=== PATIENT | male | born 1985 | race Caucasian/White ===

== ENCOUNTER 2024-10-04 09:35 | Outpatient (AMB) | payer OTHER, SELFPAY ==
--- NOTE | 2024-10-04 09:45 | A.OFFVIS_ITS ---
Vital Signs 10/04/24 09:56 Height 6 ft 3 in Weight 195 lb BMI 24.4 Pulse 53 Pulse Source Pulse Oximeter Pulse Oximetry (%) 97 Oxygen Delivery Method Room Air Intake Visit Reasons: MAT Allergies No Known Allergies Allergy (Verified 10/04/24 09:56) HPI HPI MAT: Details: He is new patient to us. He has AUD affecting his life and ability to work. 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 He last used alcohol two weeks ago otherwise he would have had 66 days sober. He did drink 4-5 sleeves a day of wild bourbon and did drink Truly spiked seltzer. He previously drank beer and gained weight. He does use marijuana daily and for sleep. Tox screen shows opiates but he denies use for 10 years. 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 He has not had alcohol withdrawal seizures or pancreatitis. He had detox July at [facility] and was there 21 days. He had Campral which he didnt find very helpful but liked naltrexone and takes 50 mg po daily and found helpful. He went to therapist yesterday and saw Domenico Ambrosio at [facility]. He took alcohol since age 16 and stopped age 28 and then restarted as above. He smokes 1 pk a day cigarettes since age 16 approximately and no vaping. He smokes marijuana daily. Soc no domestic violence no children support father and dog transport car reside with father no IVDA no OD Recovery age 28 more drinking since gf suddenly no warning and no health issues reported on couch in June no jail house no methadone no suboxone AA currently no other addictive behavior no psych hosp and no psychiatrist no SI or HI no med conditions no incarceration no parole or probation or DUIs [facility] Medical History (Updated 10/04/24 @ 10:42 by Rosa Rodrigez MD) Marijuana use Tobacco use disorder Alcohol use disorder, severe, dependence Review of Systems Const All systems reviewed & are unremarkable except as noted in HPI and below Physical Exam Vital Signs: Last Vital Signs Pulse 53 10/04/24 09:56 Pulse Ox 97 10/04/24 09:56 Oxygen Delivery Method Room Air 10/04/24 09:56 BMI result Body Mass Index 24.4 Const General: cooperative Orientation/consciousness: patient oriented x3 HEENT Head: Yes normal to inspection Mouth: Normal oral and palatal mucosa present Eyes General: appearance normal, both eyes and all related structures Pupils: Equal, round and reactive pupils present Resp Effort & Inspection: normal respiratory effort Cardio Rate: regular rate Rhythm: regular rhythm GI Palpation (GI): Soft to palpation and nontender General: Yes no CVA tenderness Back/Spine/Pelvis Back: no CVA tenderness Skin General skin exam: no rashes or lesions noted Neuro General: patient oriented x3 Cranial nerves: Yes CN's II-XII intact bilaterally and Yes Equal, round and savannah ctive pupils present Extrem General: Yes normal to inspection Psych Appearance: grossly normal Results AMB 14 Panel Urine Drug Screen Urine Marijuana (THC) Positive Last Edit by Marquita Sandy CMA on 10/04/24 09:46 Urine Cocaine Negative Last Edit by Marquita Sandy CMA on 10/04/24 09:46 Urine Morphine Negative Last Edit by Marquita Sandy CMA on 5 09:46 Urine Methamphetamine Negative Last Edit by Marquita Sandy CMA on 10/04/24 09:46 Urine Amphetamine Negative Last Edit by Marquita Sandy CMA on 10/04/24 09:46 Urine Benzodiazepine Negative Last Edit by Marquita Sandy CMA on 10/04/24 09:46 Urine Barbiturates Negative Last Edit by Marquita Sandy CMA on 10/04/24 09:46 Urine Methadone Negative Last Edit by Marquita Sandy CMA on 09:46 Urine Buprenorphine Negative Last Edit by Marquita Sandy CMA on 10/04/24 09:46 Urine Tricyclic Antidepressant Negative Last Edit by Marquita Sandy CMA on 10/04/24 09:46 Urine MDMA Negative Last Edit by Marquita Sandy CMA on 10/04/24 09 :46 Urine Oxycodone Positive Last Edit by Marquita Sandy CMA on 09:46 Urine Phencyclidine Negative Last Edit by Marquita Sandy CMA on 10/04/24 09:46 Urine Propoxyphene Negative Last Edit by Marquita Sandy CMA on 10/04/24 09:46 Results Reviewed Results Reviewed: Laboratory Last Values POC Urine Buprenorphine Negative 10/04/24 09:45 POC Urine Morphine Negative 10/04/24 09:45 POC Urine Oxycodone Positive 10/04/24 09:45 POC Urine Methadone Negative 10/04/24 09:45 POC Urine Propoxyphene Negative 10/04/24 09:45 POC Urine Barbiturates Negative 10/04/24 09:45 POC U Tricyclic Antidpr Negative 10/04/24 09:45 POC Urine PCP Negative 10/04/24 09:45 POC Ur Amphetamines Negative 10/04/24 09:45 POC Ur Methamphetamine Negative 10/04/24 09:45 POC Urine MDMA Negative 10/04/24 09:45 POC Ur Benzodiazepine Negative 10/04/24 09:45 POC Urine Cocaine Negative 10/04/24 09:45 POC Ur Marijuana (THC) Positive 10/04/24 09:45 Assessment & Plan Assessment & Plan (1) Alcohol use disorder, severe, dependence: Comment: naltrexone 50mg daily see in one month continue MVI,thiamine,folic acid continue counseling check opioids urine Code(s): F10.20 - Alcohol dependence, uncomplicated Category: Medical Plan: naltrexone 50 mg daily,one month and one refill check liver,CBC,PT and liver fibrosis HI (2) Tobacco use disorder: Comment: precontemplative no nicotine replacement desired now Code(s): F17.200 - Nicotine dependence, unspecified, uncomplicated Category: Medical Plan: na (3) Marijuana use: Code(s): F12.90 - Cannabis use, unspecified, uncomplicated Category: Social Hx Plan: na Orders: Orders AMB 14 Panel Urine Drug Screen Today Z51.81 - Encounter for therapeutic drug level monitoring Creatinine Today F10.20 - Alcohol dependence, uncomplicated Liver Fibrosis Pnl Today F10.20 - Alcohol dependence, uncomplicated Hepatitis B Surface Ab Qnt Today F10.20 - Alcohol dependence, uncomplicated Hepatitis B Surface Antigen Today F10.20 - Alcohol dependence, uncomplicated T Spot TB Today F10.20 - Alcohol dependence, uncomplicated Complete Blood Count Auto Diff Today F10.20 - Alcohol dependence, uncomplicated Hepatitis A IgG Today F10.20 - Alcohol dependence, uncomplicated Hepatitis C Antibody Today F10.20 - Alcohol dependence, uncomplicated Hepatitis C Viral Load Today F10.20 - Alcohol dependence, uncomplicated HIV Ab/Ag Today F10.20 - Alcohol dependence, uncomplicated Syphilis Screen Today F10.20 - Alcohol dependence, uncomplicated Opiates GCMS Expanded, Ur Today F10.20 - Alcohol dependence, uncomplicated Medications: New naltrexone 50 mg PO DAILY 30 days 30 tabs 1RF Coding Level of Care Code New Pt Level 4 (31023) Diagnoses Alcohol use disorder, severe, dependence F10.20 Tobacco use disorder F17.200 Marijuana use F12.90
[2024-10-04 09:56] VITALS: PULSE 53; O2SAT 97; BMI 24.4
== END 2024-10-04 10:21 | disposition home or self-care (01) ==
LOC: HO.HCC 09:36
PROVIDERS: Visit Provider Internal Medicine
DX: F10.20 Alcohol dependence, uncomplicated (principal); F17.200 Nicotine dependence, unspecified, uncomplicated; F12.90 Cannabis use, unspecified, uncomplicated; Z51.81 Encounter for therapeutic drug level monitoring
CPT/HCPCS: 99204

== ENCOUNTER 2024-10-04 09:35 | Outpatient (REF) | payer OTHER, SELFPAY ==
[2024-10-09 14:28] LABS: Codeine, Ur NEGATIVE
[2024-10-09 14:29] LABS: Hydrocodone, Ur NEGATIVE; Hydromorphone, Ur NEGATIVE; Morphine, Ur NEGATIVE; Norhydrocodone, Ur NEGATIVE; Noroxycodone, Ur NEGATIVE; Oxycodone, Ur NEGATIVE; Oxymorphone, Ur NEGATIVE
== END 2024-10-04 09:36 | disposition home or self-care (01) ==
LOC: HO.LAB 09:35
PROVIDERS: Visit Provider Internal Medicine
DX: F10.20 Alcohol dependence, uncomplicated (principal); Z51.81 Encounter for therapeutic drug level monitoring; F17.210 Nicotine dependence, cigarettes, uncomplicated; F12.90 Cannabis use, unspecified, uncomplicated; Z79.899 Other long term (current) drug therapy
CPT/HCPCS: 80307; 80365; 99202; G0480

== ENCOUNTER 2024-11-01 09:37 | Outpatient (AMB) | payer OTHER, SELFPAY ==
--- NOTE | 2024-11-01 09:40 | MHC.OFFVIS ---
Vital Signs 11/01/24 09:43 Height 6 ft 3 in Weight 199 lb BMI 24.9 Pulse 65 Pulse Source Pulse Oximeter Pulse Oximetry (%) 98 Oxygen Delivery Method Room Air Intake Visit Reasons: mat visit Allergies No Known Allergies Allergy (Verified 11/01/24 09:44) HPI Comments Details: He has said Naltrexone is helping and not drinking alcohol. He has not done blood work yet. [facility] Medical History Marijuana use Tobacco use disorder Alcohol use disorder, severe, dependence Review of Systems Const All systems reviewed & are unremarkable except as noted in HPI and below Physical Exam Vital Signs: Last Vital Signs Pulse 65 11/01/24 09:43 Pulse Ox 98 11/01/24 09:43 Oxygen Delivery Method Room Air 11/01/24 09:43 BMI result Body Mass Index 24.9 Const General: cooperative Assessment & Plan Assessment & Plan (1) Alcohol use disorder, severe, dependence: Comment: naltrexone 50mg daily see in one month continue MVI,thiamine,folic acid continue counseling Code(s): F10.20 - Alcohol dependence, uncomplicated Category: Medical Plan: See as scheduled. Medications: Refilled naltrexone 50 mg PO DAILY 30 days 30 tabs 1RF Coding Level of Care Code Est Pt Level 3 (46290) Diagnoses Alcohol use disorder, severe, dependence F10.20
[2024-11-01 09:43] VITALS: PULSE 65; O2SAT 98; BMI 24.9
== END 2024-11-01 10:22 | disposition home or self-care (01) ==
LOC: HO.HID 09:37
PROVIDERS: Visit Provider Internal Medicine
DX: F10.20 Alcohol dependence, uncomplicated (principal)
CPT/HCPCS: 99213

== ENCOUNTER → 2024-11-01 09:37 | Outpatient (BNVA) | payer OTHER, SELFPAY | PROVIDERS: Visit Provider Internal Medicine | DX: F10.20 Alcohol dependence, uncomplicated (principal) | CPT/HCPCS: 99212 ==

== ENCOUNTER 2024-12-27 11:35 | Outpatient (AMB) | payer OTHER, SELFPAY ==
--- NOTE | 2024-12-27 16:34 | MHC.AM.SUB ---
Intake Visit Reasons: MAT/ Per Dr rodrigez Allergies No Known Allergies Allergy (Verified 11/01/24 09:44) HPI HPI MAT/ Per Dr rodrigez: Details: He is doing well. He is not drinking alcohol. Naltrexone is working well. Review of Systems Const All systems reviewed & are unremarkable except as noted in HPI and below Telehealth Telehealth Telehealth Platform: Telephone Location of provider rendering services: practice address Location of patient: address on file Patient Identification confirmed using: Name, : Yes Telehealth method: voice only Patient verbally consented to treatment: Yes Patient verbally consented to billing insurance company: Yes Patient informed of any privacy concerns related to visit: Yes Minutes spent on Phone/Video with Pt.: 20 PFS Medical History Marijuana use Tobacco use disorder Alcohol use disorder, severe, dependence Assessment & Plan Assessment & Plan (1) Alcohol use disorder, severe, dependence: Comment: He is doing well Code(s): F10.20 - Alcohol dependence, uncomplicated Category: Medical Plan: See in person as scheduled. Medications: Refilled naltrexone 50 mg PO DAILY 30 tabs 2RF 30 days
== END 2024-12-27 11:39 | disposition home or self-care (01) ==
LOC: HO.HCC 11:35
PROVIDERS: Visit Provider Internal Medicine
DX: F10.20 Alcohol dependence, uncomplicated (principal)
CPT/HCPCS: 99213

== ENCOUNTER → 2024-12-27 11:35 | Outpatient (BNVA) | payer OTHER, SELFPAY | PROVIDERS: Visit Provider Internal Medicine | DX: F10.20 Alcohol dependence, uncomplicated (principal); Z79.899 Other long term (current) drug therapy | CPT/HCPCS: 99212 ==

== ENCOUNTER 2025-03-31 14:52 | Outpatient (AMB) | payer OTHER, SELFPAY ==
--- NOTE | 2025-03-31 14:54 | A.OFFVIS_ITS ---
Vital Signs 03/31/25 14:55 Height 6 ft 3 in Weight 188 lb BMI 23.5 Pulse 75 Pulse Source Pulse Oximeter Pulse Oximetry (%) 99 Oxygen Delivery Method Room Air Intake Visit Reasons: Mat Visit Allergies No Known Allergies Allergy (Verified 03/31/25 14:55) HPI HPI Mat Visit: Details: History of Present Illness The patient is a 40-year-old male presenting with a history of Alcohol Use Disorder. He has been adhering to his prescribed treatment regimen, which includes naltrexone 50 mg daily. The patient has successfully abstained from alcohol use and has not reported any cravings, relapses, or side effects related to the medication. During this visit, he confirmed his ongoing compliance with the treatment plan and expressed no concerns regarding his current management. Review of Systems - Psychiatric: Denies cravings or alcohol use. Physical Exam - Vital Signs- Stable. Results Plan Patient was informed and verbally consented to the use of an ambient scribe for clinic note documentation during this visit. 1. Alcohol use, unspecified, uncomplicated F10.90 The patient will continue with naltrexone 50 mg daily to support abstinence and prevent relapse. Continued adherence is crucial, and the patient will return for scheduled follow-ups to monitor his progress and address any issues. Discussion Notes I discussed with the patient that he is managing his Alcohol Use Disorder well with the current regimen of naltrexone 50 mg daily. He acknowledged no use of alcohol and reported no side effects from the medication. We reviewed the benefits of continuing this treatment to maintain abstinence and prevent relapse. The patient consented to the use of ambient technology during the visit, expressing no concerns regarding this approach. Follow-up appointments are set as planned. Medical Decision Making The patient is managing his Alcohol Use Disorder effectively with naltrexone while remaining abstinent from alcohol. The choice of naltrexone as the treatment aim is to sustain sobriety and avert relapse. The patient expresses understanding of the treatment plan, recognizing the importance of medication adherence and regular follow-up visits. The decision to continue the current regimen takes into account the patient's stable condition and lack of adverse effects. Patient Instructions - Continue taking naltrexone 50 mg daily. - Keep all follow-up appointments. - Contact us if you experience any side effects or concerns. - Maintain abstinence from alcohol. [facility] Medical History Marijuana use Tobacco use disorder Alcohol use disorder, severe, dependence Physical Exam Vital Signs: Last Vital Signs Pulse 75 03/31/25 14:55 Pulse Ox 99 03/31/25 14:55 Oxygen Delivery Method Room Air 03/31/25 14:55 BMI result Body Mass Index 23.5 Assessment & Plan Assessment & Plan (1) Alcohol use disorder, severe, dependence: Comment: He is doing well Code(s): F10.20 - Alcohol dependence, uncomplicated Category: Medical Plan as per note Medications: Refilled naltrexone 50 mg PO DAILY 30 tabs 5RF 30 days Coding Level of Care Code Est Pt Level 3 (20358) Diagnoses Alcohol use disorder, severe, dependence F10.20
[2025-03-31 14:55] VITALS: PULSE 75; O2SAT 99; BMI 23.5
== END 2025-03-31 16:04 | disposition home or self-care (01) ==
LOC: HO.HCC 14:52
PROVIDERS: Visit Provider Internal Medicine
DX: F10.20 Alcohol dependence, uncomplicated (principal)
CPT/HCPCS: 99213

== ENCOUNTER → 2025-03-31 14:52 | Outpatient (BNVA) | payer OTHER, SELFPAY | PROVIDERS: Visit Provider Internal Medicine | DX: F10.20 Alcohol dependence, uncomplicated (principal); Z79.899 Other long term (current) drug therapy | CPT/HCPCS: 99212 ==

== ENCOUNTER 2025-05-21 13:16 | Outpatient (AMB) | payer OTHER, SELFPAY ==
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
[2025-05-21 13:42] VITALS: BP 110/72; PULSE 83; TEMP 36.3; O2SAT 96; BMI 23.5
== END 2025-05-21 14:17 | disposition home or self-care (01) ==
LOC: HO.HMCH 13:17
DX: F12.90 Cannabis use, unspecified, uncomplicated (principal); F10.20 Alcohol dependence, uncomplicated; F17.200 Nicotine dependence, unspecified, uncomplicated; M25.531 Pain in right wrist; R19.00 Intra-abdominal and pelvic swelling, mass and lump, unspecified site

== ENCOUNTER → 2025-05-21 13:16 | Outpatient (BNVA) | payer OTHER, SELFPAY | DX: M25.531 Pain in right wrist (principal); R19.00 Intra-abdominal and pelvic swelling, mass and lump, unspecified site; F12.90 Cannabis use, unspecified, uncomplicated; F10.20 Alcohol dependence, uncomplicated; F17.200 Nicotine dependence, unspecified, uncomplicated; Z13.31 Encounter for screening for depression; Z13.39 Encounter for screening examination for other mental health and behavioral disorders | CPT/HCPCS: 96127; 99202 ==